=== PATIENT | male | born 1955 | race Caucasian/White ===

== ENCOUNTER 2017-02-05 05:18 | Day surgery (SDC) | payer MEDICAID ==
--- NOTE | 2017-02-05 07:03 | PDANEPAE ---
ANE History of Present Illness 61yo M for Colonoscopy ANE Past Medical History - Cardiovascular History Hx Hypertension: No Hx Arrhythmias: No Hx Chest Pain: No Hx Coronary Artery / Peripheral Vascular Disease: No Hx CHF / Valvular Disease: No Hx Palpitations: No - Pulmonary History Hx COPD: No Hx Asthma/Reactive Airway Disease: No Hx Recent Upper Respiratory Infection: No Hx Oxygen in Use at Home: No - Neurologic History Hx Cerebrovascular Accident: No Hx Seizures: No Hx Dementia: No - Endocrine History Hx Diabetes: No - Renal History Hx Renal Disorders: No - Liver History Hx Hepatic Disorders: No - Neurological & Psychiatric Hx Hx Neurological and Psychiatric Disorders: No - Cancer History Hx Cancer: No - Congenital Disorder History Hx Congenital Disorders: No - GI History Hx Gastrointestinal Disorders: Yes ANE Review of Systems - Exercise capacity METS (RN): 3 METS - Systems Gastrointestinal: Reports: black stools ANE Patient History - Allergies Allergies/Adverse Reactions: No Known Allergies Allergy (Unverified 02/05/17 06:20) - Home Medications Home Medications: Aspirin 81mg (*) 162 mg 02/05/17 [Last Taken 02/02/17] - NPO status NPO Since - Liquids (Date): 02/05/17 NPO Since - Liquids (Time): 03:30 NPO Since - Solids (Date): 02/03/17 NPO Since - Solids (Time): 19:00 - Anes Hx Anes Hx: no prior problems - Smoking Hx Smoking Status: Former smoker - Alcohol Use Alcohol Use: Rarely - Family Anes Hx Family Hx Anesthesia Complications: none ANE Labs/Vital Signs - Vital Signs Blood Pressure: 146/93 Heart Rate: 86 Respiratory Rate: 16 O2 Sat (%): 95 Height: 187.96 cm Weight: 86.183 kg ANE Physical Exam - Airway Mallampati Score: Class 2 Mouth exam: normal dental/mouth exam - Pulmonary Pulmonary: clear to auscultation - Cardiovascular Cardiovascular: regular rate and rhythym - ASA Status ASA Status: II ANE Anesthesia Plan Anesthesia Plan: GA with mask
[2017-02-05] MEDS ORDERED: PROPOFOL/EMULSION 500 MG/50 ML BOTTLE IV ONE ×2 (07:05)
[2017-02-05] MEDS ORDERED: ALBUTEROL 3 ML DEYVIAL IH PRN (07:14)
[2017-02-05] MEDS ORDERED: ONDANSETRON 4 MG/2 ML VIAL IVP PRN (07:14)
[2017-02-05] MEDS ORDERED: fentaNYL 100 MCG/2 ML INJ IVP PRN (07:14)
[2017-02-05] MEDS ORDERED: HYDROmorphONE/DILAUDID 1 MG/ML SYR IVP PRN (07:14)
[2017-02-05] MEDS ORDERED: LR 500 ML IV PRN (07:14)
[2017-02-05] MEDS ORDERED: NALOXONE HCL 0.4 MG/ML INJ IVP PRN (07:14)
[2017-02-05] MEDS ORDERED: LIDOCAINE 2% 5 ML SDV ONE (07:19)
--- NOTE | 2017-02-05 07:22 | PDGENHP ---
History & Physical Outpatient Chief Complaint: rectal bleeding History of Present Illness: 61 yr old male here for rectal bleeding, colonoscopy planned Pertinent Past, Social, Family History: No family hx related to HPI, he does not smoke, he is homeless. Relevant Physical Exam: GEN: NAD. HEENT: PERRL. Chest: CTA B. Cardiac: RRR. Abd: Soft, nt, nd Cardiorespiratory Assessment: See above
[2017-02-05] MEDS ORDERED: fentaNYL 100 MCG/2 ML INJ ONE (07:31)
--- NOTE | 2017-02-05 07:55 | POSTOPPROG ---
Post Op Note Date of Operation: 02/05/17 Surgeon: Anam Gamez Pre-op Diagnosis: rectal bleeding Post-op Diagnosis: colon polyp Indication: rectal bleeding Procedure: colon with snare Findings: colon polyp, poor prep Inf/Abcess present in the surg proc area at time of surgery?: No
--- NOTE | 2017-02-05 08:18 | POSTANESTH ---
Post Anesthetic Evaluation Cardiovascular Status: Normal, Stable Respiratory Status: Normal, Stable Level of Consciousness/Mental Status: Can Participate in Eval, Mildly Sleepy, Arousable Pain Control: Adequate, Prn Tx Ordered Nausea/Vomiting Control: Adequate, Prn Tx Ordered
[2017-02-05 08:23] VITALS: TEMP 97.5
[2017-02-05 08:38] VITALS: BP 127/79
[2017-02-05 08:50] VITALS: PULSE 71; RESP 16; O2SAT 98
--- NOTE | 2017-02-05 08:56 | GPN ---
[f rep st] PROCEDURE NOTE PREPROCEDURE DIAGNOSIS: Rectal bleeding. POSTPROCEDURE DIAGNOSIS: 1. Poor colon prep. 2. Small transverse colon polyp, status post snare removal. PROCEDURES: Colonoscopy with snare. MEDICATIONS: Monitored anesthesia care. INDICATIONS: The patient is a 61-year-old gentleman with a history of colonoscopy in 2009. Apparen tly, polyps were removed at that time. He is currently here for increased rectal bleeding over the last 3 months. He also reports constipation. The risks and benefits of the procedure were discusse d with the patient, and consent obtained. The risks included, but not limited to, bleeding, perfora tion, risks associated with sedation. The patient is ASA class 2. DESCRIPTION OF PROCEDURE: The adult colonoscope was advanced into the cecum. The appendiceal orifi ce, ileocecal valve and cecum appeared normal. There was stool throughout the entire colon precludi ng visualization of approximately 30% of the colon lumen. There was a 4 mm polyp in the transverse colon that was removed using cold snare polypectomy and retrieved for pathology. No large masses we re seen. Retroflexed views in the rectum were somewhat limited by stool, but there was no obvious s ource for rectal bleeding. IMPRESSION: 1. Poor colon prep. 2. Small colon polyps, status post removal. RECOMMENDATIONS: 1. Advance diet as tolerated. 2. Discharge home with escort. 3. Continue current medications. 4. A repeat colonoscopy to be scheduled with 2-day GoLYTELY prep at [facility] for poor colon preparation for evaluation of polyps. 5. Follow up the final pathology results. Results available within 10 days. 6. Thank you for allowing me to participate in the care of patient. Please do not hesitate to call with questions. /[id number]/MODL
== END 2017-02-05 09:17 | disposition home or self-care (01) ==
LOC: FSGY 05:18
PROVIDERS: ATTEND Internal Medicine Gastroenterology
PROC: 0DBE8ZX Excision of Large Intestine, Via Natural or Artificial Opening Endoscopic, Diagnostic (ICD-10-PCS; principal; 2017-02-05 07:30)
DX: K62.5 Hemorrhage of anus and rectum (principal); Z87.891 Personal history of nicotine dependence
CPT/HCPCS: J2704; J3010